=== PATIENT | male | born 1985 | race Caucasian/White ===

== ENCOUNTER 2017-07-05 19:01 | Emergency (ER) | payer MEDICAID ==
[2017-07-05 19:18] VITALS: RESP 16; TEMP 99.3; O2SAT 97
--- NOTE | 2017-07-05 19:40 | EDPHY ---
H & P Time Seen by Provider: 07/05/17 19:25 HPI/ROS: HPI: This is a 32-year-old male who presents with Chief Complaint: Rash Location: Body Quality: Rash Duration: 1 day Signs and Symptoms: Moderate sore throat, no fever, no chills, no headache, no sores in mouth, no ear pain, nasal congestion, no neck stiffness, no pruritus Timing: Sudden, gradually worsening Severity: Moderate Context: This is a 32-year-old male who is homosexual and within the last 2 weeks has a new boyfriend. Patient is that he started to develop a rash on his stomach yesterday evening that has now spread to the entire torso. Denies any new detergents, lotions. Modifying Factors: Did not call primary care provider. Comment: ROS: Eyes: No blurred vision Respiratory: No shortness of breath, no cough Cardiovascular: No chest pain Gastrointestinal: No nausea, no vomiting no diarrhea Genitourinary: No dysuria Extremities: No myalgias Neurologic: No weakness, no numbness Skin: + rashes Hematologic: No bruising, no bleeding MEDICAL/SURGICAL HISTORY: urethral stricture. denies HIV/AIDS. Social History: Currently employed. Smoking Status: Never smoked Physical Exam: CONSTITUTIONAL: Adult white male extremely well-appearing, awake and alert, no obvious distress HEENT: Atraumatic and normocephalic, PERRL, EOMI. Tympanic membranes clear. Nares patent with no mucosal edema or discharge. Oropharynx clear, tongue reddened, no tongue swelling, no oral lesions, tonsils 1+ and moderately erythematous, no exudate, uvula midline and moist pink mucosa. Airway patent. No lymphadenopathy. No meningismus. Cardiovascular: Normal S1/S2, regular rate, regular rhythm, without murmur rub or gallop. PULMONARY/CHEST: Symmetrical and nontender. Clear to auscultation bilaterally Good air movement. No accessory muscle usage. ABDOMEN: Soft, nondistended, nontender, no rebound, no guarding, no peritoneal signs, no masses or organomegaly. No CVAT. EXTREMITIES: 2/2 pulses, no deformities, no clubbing, no cyanosis or edema. NEUROLOGICAL: no focal neuro deficits. GCS 15. Speech clear. SKIN: Warm and dry, light pink small pinpoint papular raised sandpaper rash on torso and bilateral arms; no blanching; no petechiae; Good capillary refill. Constitutional: Initial Vital Signs Temperature (C) 37.4 C 07/05/17 19:16 Heart Rate 106 H 07/05/17 19:16 Respiratory Rate 16 07/05/17 19:16 Blood Pressure 139/90 H 07/05/17 19:16 O2 Sat (%) 97 07/05/17 19:16 O2 Delivery Mode Room Air Allergies/Adverse Reactions: No Known Allergies Allergy (Unverified 07/05/17 19:15) Home Medications: Medication Instructions Recorded NK [No Known Home Meds] 07/05/17 Medical Decision Making ED Course/Re-evaluation: Strep test ordered Afebrile. No signs of airway compromise, retropharyngeal abscess, systemic signs Due to high clinical suspicion patient given option for 10 days of antibiotics versus IM Bicillin Patient has requested one time treatment with IM abx Differential Diagnosis: Differential diagnosis includes strep pharyngitis, scarlet fever, dermatitis, viral exanthem, syphilis. - Data Points Laboratory Results: 07/05/17 07/05/17 Unknown 19:25 Group A Strep Screen NEGATIVE (NEGATIVE) Group A Strep DNA Pending Departure - Departure Disposition: Home, Routine, Self-Care Clinical Impression: Strep pharyngitis with scarlet fever Condition: Good Instructions: Scarlet Fever (ED) Referrals: NONE *PRIMARY CARE P,. [Primary Care Provider] - As per Instructions [facility],. [Clinic] - 5-7 days, if not improved
[2017-07-05] MEDS ORDERED: BICILLIN C-R 1200000 UNIT/2 ML SYRINGE IM ONE (19:45)
[2017-07-05 20:24] VITALS: BP 114/85; PULSE 93
== END 2017-07-05 20:24 | disposition home or self-care (01) ==
DX: J02.0 Streptococcal pharyngitis (principal)